=== PATIENT | female | born 2000 | race Caucasian/White ===

== ENCOUNTER → 2018-08-03 17:52 | Outpatient (REF) | payer OTHER, SELFPAY | LOC: LAB 17:52 | PROVIDERS: Visit Provider Physician Assistant | DX: L70.0 Acne vulgaris (principal) | CPT/HCPCS: 87070; 87075; 87077; 87147; 87186; 87205 ==

== ENCOUNTER → 2019-08-11 11:33 | Outpatient (CLI) | payer OTHER, SELFPAY ==
[2019-08-11 11:54] LABS: Add Manual Diff / Slide Review NO; Basophils Absolute Auto 0 /uL (0-100); Basophils Percent Auto 0.5 % (0-2); Eosinophils Absolute Auto 0 /uL (0-450); Eosinophils Percent Auto 0.7 % (2-4); Hematocrit 38.2 % (36-46); Lymphocytes Absolute Auto 1200 /uL (1100-4500); Lymphocytes Percent Auto 19.5 % (25-40); Mean Corpuscular HGB Conc 34.1 % (30-36); Mean Corpuscular Hemoglobin 30.7 PG (26-34); Mean Corpuscular Volume 90.2 fL (80-100); Monocytes Absolute Auto 400 /uL (0-900); Monocytes Percent Auto 6.5 % (3-14); Neutrophils Absolute Auto 4600 /uL (1500-7000); Neutrophils Percent Auto 72.8 % (50-75); Platelet Count 237 X10^3/uL (150-400); Red Blood Cell Count 4.23 X10^6/uL (4.0-5.2); Red Cell Distribution Width 12.4 % (11.6-14.8); White Blood Cell Count 6.3 X10^3/uL (4.5-11.0)
[2019-08-11 12:02] LABS: INR 1.1 (0.9-1.3); Prothrombin Time 12.9 SECONDS (10.1-12.7)
[2019-08-11 12:04] LABS: PTT Partial Thromboplastin Tim 36 SECONDS (26.4-36.2)
== END ==
PROVIDERS: PCP Family Medicine; Visit Provider Family Medicine
DX: R23.8 Other skin changes (principal)
CPT/HCPCS: 36415; 85025; 85610; 85730

== ENCOUNTER → 2020-12-06 15:35 | Outpatient (CLI) | payer OTHER, SELFPAY ==
[2020-12-06] MEDS: COVID-19 VACC #1, MRNA(MOD) 100 MCG/0.5 ML VIAL IM (15:43)
== END ==
PROVIDERS: PCP Family Medicine; Visit Provider Internal Medicine
DX: Z23 Encounter for immunization (principal)
CPT/HCPCS: 0011A; 91301

== ENCOUNTER → 2021-01-02 15:32 | Outpatient (CLI) | payer OTHER, SELFPAY ==
[2021-01-02] MEDS: COVID-19 VACC #2, MRNA(MOD) 100 MCG/0.5 ML VIAL IM (15:37)
== END ==
PROVIDERS: PCP Family Medicine; Visit Provider Internal Medicine
DX: Z23 Encounter for immunization (principal)
CPT/HCPCS: 0012A; 91301